=== PATIENT | male | born 2000 | race Hispanic/Latino ===

== ENCOUNTER 2019-01-19 17:44 | Emergency (ER) | payer SELFPAY ==
[2019-01-19 18:03] VITALS: BP 120/67; PULSE 81; RESP 20; TEMP 98.6; O2SAT 99
--- NOTE | 2019-01-19 19:42 | C.PDOC ---
History Of Present Illness 18 y/o male presents to the ER complaining of left great toe pain. Patient states the pain began after he kicked a wall with his shoe. Patient denies having weakness and numbness. Time Seen by Provider: 01/19/19 18:16 Chief Complaint (Nursing): Lower Extremity Problem/Injury History Per: Patient History/Exam Limitations: no limitations Onset/Duration Of Symptoms: Hrs Current Symptoms Are (Timing): Still Present Severity: Moderate Past Medical History Reviewed: Historical Data, Nursing Documentation, Vital Signs Vital Signs: Last Vital Signs Temp 98.6 F 01/19/19 18:01 Pulse 81 01/19/19 18:01 Resp 20 01/19/19 18:01 BP 120/67 01/19/19 18:01 Pulse Ox 99 01/19/19 18:01 - Medical History PMH: Asthma Other Surgeries: Hx of surgeries - [facility] INDIVID PSYCHOTHERAP NEC (12/13/13) OTHER GROUP THERAPY (12/13/13) Family History: States: No Known Family Hx - Social History Hx Alcohol Use: No Hx Substance Use: No - Immunization History Hx Tetanus Toxoid Vaccination: No Hx Influenza Vaccination: No Hx Pneumococcal Vaccination: No Review Of Systems Musculoskeletal: Positive for: Other (left great toe pain) Neurological: Negative for: Weakness, Numbness Physical Exam - Physical Exam Appears: Non-toxic, No Acute Distress Skin: Normal Color, Warm, Dry Head: Atraumatic, Normacephalic Eye(s): bilateral: Normal Inspection Extremity: Normal ROM, Tenderness (diffuse tenderness to left great toe,no tenderness to remaining toes of left foot), Capillary Refill (< 2 seconds), Swelling (swelling to left great toe) Pulses: Left Dorsalis Pedis: Normal, Right Dorsalis Pedis: Normal Neurological/Psych: Oriented x3, Normal Speech, Normal Sensation ED Course And Treatment O2 Sat by Pulse Oximetry: 99 (RA) Pulse Ox Interpretation: Normal Medical Decision Making Medical Decision Making: kicked wLL HAS GREAT TOE PAIN, fx noted on xray.l discussed with podiatry- cecile hyatt, post op shoe, podiatry clinic next week. Disposition Counseled Patient/Family Regarding: Studies Performed, Diagnosis, Need For Followup, Rx Given - Disposition Referrals: [facility] [Outside] Disposition: HOME/ ROUTINE Disposition Time: 19:41 Condition: GOOD Additional Instructions: Keep big toe and second toe taped together for support. Wear hard soled shoe for comfort. Call clinic to tomorrow to make appointment at podiatry clinic for next Thursday; they meet from 12 pm -4 pm. Tylenol or Motrin for pain. 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 - Scribe Statement The provider has reviewed the documentation as recorded by the Tannaibe Silvina Garcia Provider Attestation All medical record entries made by the Tannaibgaby were at my direction and personally dictated by me. I have reviewed the chart and agree that the record accurately reflects my personal performance of the history, physical exam, medical decision making, and the department course for this patient. I have also personally directed, reviewed, and agree with the discharge instructions and disposition.
--- NOTE | 2019-01-20 09:57 | RAD ---
Date of service: 01/19/2019 PROCEDURE: Left Foot Radiographs. HISTORY: great toe pain COMPARISON: None. TECHNIQUE: 3 views obtained. FINDINGS: BONES: A nondisplaced fracture of the 1st distal phalanx is suggested. Along its lateral aspect interphalangeal joint extension is suspect. JOINTS: No significant appearing arthrosis seen. SOFT TISSUES: Normal. OTHER FINDINGS: None. IMPRESSION: Nondisplaced distal phalangeal fracture great toe lateral intra-articular extension suggested. No dislocation.
== END 2019-01-19 19:57 | disposition home or self-care (01) ==
LOC: C.ER 17:44
DX: S92.425A Nondisplaced fracture of distal phalanx of left great toe, initial encounter for closed fracture (principal); W22.09XA Striking against other stationary object, initial encounter